=== PATIENT | male | born 1950 | race Caucasian/White ===

== ENCOUNTER → 2017-08-21 | Outpatient (CLI) | payer BC, OTHER ==
[~2017-08-21] MED LIST: LEVOTHYROXIN0.025 M1 PO; LISINOPRIL/HCTZ1 TA3 PO; PRAVASTATIN SOD80 M1 PO
--- NOTE | 2017-08-23 10:21 | RADIOLOGY REPORT PS360 ---
MRI-L-SPINE W/O, MRI-3D RENDERING/MYELOGRAM HISTORY: BACK PAINlow back pain for years no trauma Patient Age: 67 years: Male Ordering Physician: Fracisco Liriano MD TECHNIQUE: Sagittal STIR, T1, T2, axial T1 and T2. On 1.5T Siemens wide bore MRI. 3-D MR myelogram image set obtained & performed on MRI workstation. Additional sagittal thin section T2 weighted dataset obtained from this latter acquisition as well (---76 CPT) COMPARISON :Plain films lumbar spine 07/17/1970 FINDINGS. Vertebral bodies intact with no compression fractures or lesions. Degenerative disc changes most pronounced L5/S1 and L1/2 with hypertrophic facet changes throughout the L-spine.Modest volume underlying osseous spinal canal further narrowed by the features L5/S1. Prominent degenerative disc space narrowing with diffuse posterior marginal osteophytic ridging. This hard disc most evident to the left, indents the thecal sac midline & to the left. Moderate Spurring encroaches upon the lateral recesses bilaterally and neural foramen bilaterally with generous encroachment at left foramen, greater than right. Patient posterior element/facet hypertrophy also contributes this foraminal encroachment L4/5. Mild diffuse disc bulge. Exuberant facet and posterior element hypertrophy. Features combine to yield moderately pronounced central canal spinal stenosis. ; As well as bilateral recess & foraminal encroachment bilaterally, most severe at right foramen. The L3/4 slight loss of disc hydration with only scant narrowing of the disc posteriorly. Mild disc bulge most evident towards foramen. This along with moderate facet and hypertrophy yields moderate-generous foraminal encroachment/narrowing bilaterally. mild central canal stenosis. L2/3. Asymmetric disc bulge to right, most pronounced towards right foramen. [id number] facet & posterior element hypertrophy. Moderately pronounced central canal stenosis; with right recess & right foraminal encroachment due to the above features L1/2. Marked diffuse disc space narrowing minor spurring and disc prominence towards right foramen yields mild foraminal encroachment on right more so than left. Mild prominence posteriorly. Slightly indents thecal sac T12/L1. Disc intact T11/12 disc intact. Conus ends appropriately at L1 3-D MR myelogram image set reveals multilevel spinal stenosis most pronounced at L2/3, followed by L4/5 and to lesser degree with mild central canal stenosis L3/4 IMPRESSION Lumbar spondylosis with multilevel degenerative disc changes and facet hypertrophy resulting in variable degrees of spinal stenosis at several levels. Also bilateral recess and foraminal encroachment at several levels. Features detailed in text. . Moderately pronounced spinal stenosis most pronounced L2/3, & L4/5 with mild central canal stenosis L3/4. Bilateral recess and foraminal encroachment at multiple levels;, most pronounced right L4/5, left at L5/S1 bilateral at L3/4, right L2/3.
== END ==
LOC: RAD 08:00
DX: M54.5 Low back pain (principal)